=== PATIENT | female | born 1965 | race Caucasian/White ===

== ENCOUNTER → 2021-02-13 13:20 | Outpatient (CLI) | payer BC, SELFPAY ==
[2021-02-13 15:22] LABS: Basophils % 0.6 % (0.1-2.0); Eosinophils # 0.2 K/mm3 (0.0-0.4); Eosinophils % 4.1 % (0.1-12.0); Hematocrit 44.2 % (37.0-47.0); Hemoglobin 14.7 g/dL (12.2-16.2); Lymphocytes # 1.1 K/mm3 (0.7-4.5); Lymphocytes % 29.2 % (10-50); Mean Corpuscular HGB Conc 33.2 g/dL (31.8-35.4); Mean Corpuscular Hemoglobin 30.5 pg (27.0-31.2); Mean Corpuscular Volume 92.1 fl (81-99); Mean Platelet Volume 8.6 fl (7.4-10.4); Monocytes # 0.3 K/mm3 (0.1-1.0); Monocytes % 8.2 % (1.7-9.3); Neutrophils # 2.2 K/mm3 (1.8-7.8); Neutrophils % 57.9 % (37.0-80.0); Platelet Count 342 K/mm3 (142-424); White Blood Count 3.9 K/mm3 (4.8-10.8)
[2021-02-13 15:46] LABS: Alanine Aminotransferase 19 U/L (12-78); Albumin Level 4.4 g/dl (3.5-5.0); Albumin/Globulin Ratio 1.6 (1.1-1.8); Alkaline Phosphatase 116 U/L (38-126); Anion Gap 12.2 mEq/L (5-15); Aspartate Amino Transferase 30 U/L (14-36); Bilirubin,Total 1.4 mg/dl (0.2-1.3); Blood Urea Nitrogen 12 mg/dl (7-17); Calcium 9.4 mg/dl (8.4-10.2); Carbon Dioxide 27 mmol/L (22.0-30.0); Chloride 105 mmol/L (98-107); Chol/HDL Ratio 2.5 (1-3.5); Cholesterol 179 mg/dl (140-200); Estimated Glomerular Filt Rate 86 ml/min (>60); GFR (African American) 104 ML/MIN (>60); Globulin 2.7 g/dL (1.3-3.2); Glucose 69 mg/dl (74-100); HDL Cholesterol 72 mg/dl (40-60); Potassium 4.2 mmoL/L (3.5-5.1); Sodium 140 mmol/L (136-145); Total Protein,Serum 7.1 g/dl (6.3-8.2); Triglycerides 77 mg/dl (30-150); VLDL Cholesterol 15 mg/dL (0-40)
[2021-02-13 15:58] LABS: Direct LDL Cholesterol 112.57 mg/dL (100-129)
[2021-02-13 16:03] LABS: 25-OH Vitamin D, Total 90.2 ng/mL (30-100)
[2021-02-16 18:08] LABS: Estrogen 55 pg/mL (.)
== END ==
PROVIDERS: Visit Provider Family Medicine
DX: E03.9 Hypothyroidism, unspecified (principal); R53.83 Other fatigue; K59.00 Constipation, unspecified
CPT/HCPCS: 80053; 80061; 82306; 82672; 84439; 84443; 85025

== ENCOUNTER 2023-09-05 09:07 | Emergency (ER) | payer BC, SELFPAY ==
--- NOTE | 2023-09-05 09:16 | EXP.UTC ---
Discharge Plan Disposition Patient Disposition: Home, Self-Care Condition: Good Prescriptions Prescriptions: New levofloxacin 500 mg tablet 500 mg PO DAILY Qty: 5 0RF No Action aspirin [Adult Aspirin Regimen] 81 mg tablet,delayed release (DR/EC) 81 mg PO DAILY cholecalciferol (vitamin D3) 125 mcg (5,000 unit) capsule 125 mcg PO DAILY omega 0-cyt-epf-fish oil [Fish Oil] 300-1,000 mg capsule 1 cap PO DAILY Referrals Follow up/Referrals: Jude Aleman MD [Primary Care Provider] - See instructions Activity Restrictions/Add. Instructions Additional Instructions/Restrictions: I will call you with results of COVID test tonight Urine culture results should be available Friday/Friday Clinical Impressions Clinical Impression: UTI (urinary tract infection) Instructions Patient Instructions: DI for Urinary Tract Infection (UTI) [place]charge ED Provider: [place]adeo [facility] [place] Stated complaint: poss uti, chilling, headache Time Seen by Provider: 09/05/23 09:38 Description of Symptoms (Recalled from Triage Doc. by RN): Patient seen at PCP 4 days ago. Diagnosed with UTI, started on Macrobid. Has felt worse instead of better. Tired, flushed, feverish, queasy. Has had intermittent mild pain in left flank. No hematuria. History of Present Illness Provider Complaint: Patient seen at PCP 4 days ago. Diagnosed with UTI, started on Macrobid. Has felt worse instead of better. Tired, flushed, feverish, queasy. Has had intermittent mild pain in left flank. No hematuria. Woke up with headache this morning. Coworker had COVID earlier this week. Onset (ago): day(s) (4) Location: abdomen and pelvis Radiation: back Quality: burning Relieving factors: none Exacerbating factors: none Associated symptoms: fever/chills and headaches Treatments prior to arrival: other (Macrobid) Related Data Home Medications Medication Instructions Recorded Confirmed aspirin 81 mg tablet,delayed 81 mg PO DAILY 02/13/21 02/13/21 release (Adult Aspirin Regimen) cholecalciferol (vitamin D3) 125 125 mcg PO DAILY 02/13/21 02/13/21 mcg (5,000 unit) capsule omega 0-vwh-qhk-fish oil 300 1 cap PO DAILY 02/13/21 02/13/21 mg-1,000 mg capsule (Fish Oil) Previous Rx's Medication Instructions Recorded levofloxacin 500 mg tablet 500 mg PO DAILY #5 tabs 09/05/23 Allergies Allergy/AdvReac Type Severity Reaction Status Date / Time Penicillins Allergy Unknown Verified 02/13/21 10:29 [facility] Disclaimer: The information contained in this section may have been updated after the patient was seen, as this information can be updated by other users. Medical History (Updated 09/05/23 @ 09:50 by LAYLA Adam) UTI (urinary tract infection) Skin cancer Breast cancer Surgical History (Updated 09/05/23 @ 09:31 by Meredith Gallardo RN) History of cardiac cath Social History Smoking Status: Never smoker alcohol intake: never substance use type: denies use current occupational status: employed Travel in the last 8 weeks: None ROS Obtained: Yes All systems reviewed & no additional complaints except as documented Constitutional Constitutional: Reports chills, Reports fatigue, Reports fever(s) and Reports headache(s) ENT Ears, Nose, Mouth, and Throat: Reports headache(s) Gastrointestinal Gastrointestingal: Reports nausea Neurologic Neurologic: Reports headache(s) Endocrine Endocrine: Reports fatigue Physical Exam General General appearance: alert and in no apparent distress Head Head exam: atraumatic, normocephalic and normal inspection Eye Eye exam: Present normal appearance, PERRL and EOMI ENT ENT exam: Present normal exam, normal oropharynx, mucous membranes moist, TM's normal bilaterally and normal external ear exam Neck Neck exam: Present normal inspection, full ROM and trachea midline; Absent meningismus or lymphadenopathy Chest Chest inspection: Present normal inspection and symmetric chest wall rise; Absent tenderness Respiratory Respiratory exam: Present normal lung sounds bilaterally; Absent respiratory distress Cardiovascular Cardiovascular exam: Present regular rate and normal rhythm; Absent JVD Abdominal Exam Abdominal exam: Present soft and normal bowel sounds; Absent distention, tenderness or guarding Extremities Exam Extremities exam: Present normal inspection, full ROM and normal capillary refill; Absent calf tenderness Back Exam Back exam: Present normal inspection and CVA tenderness (L) Neurological Exam Neurological exam: Present alert and oriented X3 Psychiatric Psychiatric exam: Present normal affect and normal mood Skin Skin exam: Present warm, dry, intact and normal color Lymphatic Lymphatic Findings: no adenopathy Medical Decision Making [place] Inquiry Pt receiving controlled substance: No Lab Data Lab results reviewed: Yes I reviewed the patient's lab results.
[2023-09-05 09:20] VITALS: BP 159/99; PULSE 97; RESP 17; TEMP 37.1; O2SAT 96; BMI 23.7
[2023-09-05 09:26] VITALS: BMI 25.0
[2023-09-05 09:42] LABS: Apearance,Urine Clear (Clear); Bilirubin,Urine Negative (Negative); Blood, Urine Trace (Negative); Color,Urine Yellow (Yellow); Glucose,Urine (UA) Negative (Negative); Ketones,Urine 40 (Negative); PH,Urine 5.5 (5.0-8.5); Protein,Urine Negative (Negative); Specific Gravity, Urine 1.015 (1.005-1.030); UTC Leukocyte Esterase,Urine Negative (Negative); UTC Nitrate,Urine Negative (Negative); Urobilinogen,Urine 0.2 EU/dl (0.2)
[2023-09-05 09:50] VITALS: BP 159/99; PULSE 97; RESP 17; TEMP 37.1; O2SAT 96
[2023-09-05 09:50] LABS: Coronavirus 19, PCR Not Detected (NotDetected); Influenza A, PCR Not Detected (NotDetected); Influenza B, PCR Not Detected (NotDetected)
== END 2023-09-05 09:51 | disposition home or self-care (01) ==
PROVIDERS: Emergency Provider Physician Assistant; PCP Family Medicine
DX: N39.0 Urinary tract infection, site not specified (principal); B95.2 Enterococcus as the cause of diseases classified elsewhere; R51.9 Headache, unspecified; M54.59 Other low back pain; R68.83 Chills (without fever)
CPT/HCPCS: 81003; 87086; 87088; 87186; 87636; 99204; 99212; G0463